=== PATIENT | female | born 2000 | race Caucasian/White ===

== ENCOUNTER 2025-03-20 19:12 | Emergency (ER) | payer SELFPAY ==
[~2025-03-20] VITALS: Ht 152.4 cm; Wt 52.4 kg
[2025-03-20 19:16] VITALS: BP 124/75; TEMP 98.7; O2SAT 98
[2025-03-20] MEDS ORDERED: AMOX500C PO (20:36)
[2025-03-20] MEDS ORDERED: IBUP-1022 PO (20:36)
[2025-03-20] MEDS: AMOXICILLIN 500 MG CAP PO ONE (20:44)
== END 2025-03-20 20:47 | disposition home or self-care (01) ==
LOC: M ED 19:12
DX: J03.90 Acute tonsillitis, unspecified (principal); Z79.1 Long term (current) use of non-steroidal anti-inflammatories (NSAID); Z79.2 Long term (current) use of antibiotics